=== PATIENT | male | born 1990 | race Caucasian/White ===

== ENCOUNTER 2019-02-15 12:27 | Day surgery (SDC) | payer BC ==
[2019-02-13 15:24] VITALS: BMI 25.7
[2019-02-15] MEDS ORDERED: Bupivacaine/Epinephrine 0.25% 30 ML VIAL ONE (14:00)
[2019-02-15] MEDS ORDERED: Fentanyl 100 MCG/2 ML VIAL ONE ×2 (14:09→15:25)
[2019-02-15] MEDS ORDERED: Midazolam HCl 2 mg/2 ml Vial ONE (14:09)
[2019-02-15] MEDS ORDERED: PROPOFOL 200 MG/20 ML VIAL ONE (14:16)
[2019-02-15] MEDS ORDERED: Ketorolac Tromethamine 30 MG/ML VIAL ONE (14:16)
[2019-02-15] MEDS ORDERED: Lidocaine 1% PF 5 ML VIAL ONE (14:16)
[2019-02-15] MEDS ORDERED: HYDROcodone/Acetaminophen 5/325 mg Tablet ONE (16:35)
--- NOTE | 2019-02-16 09:19 | OP ---
DATE OF PROCEDURE: 02/15/2019 PREOPERATIVE DIAGNOSIS: Fistula in ano. POSTOPERATIVE DIAGNOSIS: Fistula in ano. PROCEDURE PERFORMED: Fistulotomy, complete. ANESTHESIA: General. ESTIMATED BLOOD LOSS: Minimal. COMPLICATIONS: None. FINDINGS: There was a superficial perianal fistulas that was able to be treated in 1 setting. DESCRIPTION OF PROCEDURE: The patient was taken to the operating room and laid supine on the operating room table. After general anesthetic was obtained, placed in lithotomy position. His perineal area was prepped and draped in a sterile fashion. He has left superolateral external opening from this fistula. Fistula probe was used to connect to the inside hole. This appeared to be superficial to the sphincter muscle, so it was cut between the 2 openings. The underlying granulation tissue was burred. The wound was irrigated and left open. The patient was sent to Recovery in stable condition. All instrument counts, needle counts and lap counts are correct. Job ID: [id number]
== END 2019-02-15 17:25 | disposition home or self-care (01) ==
LOC: SDC 12:27
PROVIDERS: ATTEND Surgery
PROC: 0DBQ0ZZ Excision of Anus, Open Approach (ICD-10-PCS; principal; 2019-02-15)
DX: K60.3 Anal fistula (principal); J45.909 Unspecified asthma, uncomplicated; Z79.899 Other long term (current) drug therapy; Z88.1 Allergy status to other antibiotic agents; Z88.2 Allergy status to sulfonamides
CPT/HCPCS: J0690; J1885; J2001; J2250; J2704; J3010